=== PATIENT | female | born 1955 | race Caucasian/White ===

== ENCOUNTER 2018-05-01 20:40 | Inpatient (IN) | payer MEDICAID, BC ==
[2018-05-01 21:11] LABS: ADD MAN DIFF? NO
[2018-05-01] MEDS: ONDANSETRON 4 MG INJ IV (21:12)
[2018-05-01 21:13] LABS: WHITE BLOOD COUNT 10.9 10^3/ul (4.8-10.8)
[2018-05-01 21:13] LABS: BASOPHILS % 0.3 % (0.0-2.0); HEMATOCRIT 43.6 % (37.0-47.0); LYMPHOCYTES # 1.6 10^3/ul (0.8-2.9); LYMPHOCYTES % 14.8 % (15.0-51.0); MEAN CORPUSCULAR HEMOGLOBIN 26.8 pg (29.0-33.0); MEAN CORPUSCULAR HGB CONC 32.1 g/dl (32.0-37.0); MEAN CORPUSCULAR VOLUME 83.4 fl (82.0-101.0); MEAN PLATELET VOLUME 9.3 fl (7.4-10.4); MONOCYTE # 0.4 10^3/ul (0.3-0.9); MONOCYTES % 3.5 % (0.0-11.0); NEUTROPHIL # 8.8 10^3/ul (1.6-7.5); NEUTROPHILS % 81.2 % (39.0-77.0); PLATELET COUNT 411 10^3/UL (140-415); RED BLOOD COUNT 5.23 10^6/ul (4.20-5.40); RED CELL DISTRIBUTION WIDTH 14.7 % (11.5-14.5)
[2018-05-01] MEDS: SOD CHLORIDE 0.9% 1,000 ML IV (21:18)
[2018-05-01] MEDS: HYDROmorphONE 1 MG/ML SYG IV (21:18)
[2018-05-01 21:34] LABS: ALANINE AMINOTRANSFERASE 23 IU/L (13-69); ALBUMIN 4.7 g/dl (3.3-4.9); ALBUMIN/GLOBULIN RATIO 1.46; ALKALINE PHOSPHATASE 91 IU/L (42-121); ANION GAP 15 (5-13); ASPARTATE AMINO TRANSFERASE 38 IU/L (15-46); BILIRUBIN,INDIRECT 0.2 mg/dl (0-1.1); BILIRUBIN,TOTAL 0.2 mg/dl (0.2-1.3); BLOOD UREA NITROGEN 19 mg/dl (7-20); CALCIUM 10.6 mg/dl (8.4-10.2); CARBON DIOXIDE 27 mmol/L (21-31); CHLORIDE 104 mmol/L (97-110); CREATININE 0.94 mg/dl (0.44-1.00); Estimated GFR > 60 mL/min (>60); GLUCOSE 168 mg/dl (70-220); LIPASE 131 U/L (23-300); POTASSIUM 3.7 mmol/L (3.5-5.1); SODIUM 146 mmol/L (135-144); TOTAL PROTEIN 7.9 g/dl (6.1-8.1)
[2018-05-01] MEDS: IOHEXOL 300MG/ML 150 ML BTL (22:06)
[2018-05-01] MEDS: SOD CHLORIDE 0.9% 100 ML (22:06)
[2018-05-01] MEDS ORDERED: SOD CHLORIDE 0.9% 1,000 ML IV (22:45)
[2018-05-01] MEDS ORDERED: ACETAMINOPHEN 325 MG TAB PO (23:00)
[2018-05-01] MEDS: LIDOCAINE 2% VISC 15 ML CUP PO (23:41)
[2018-05-01] MEDS ORDERED: morphine 4 MG/ML VIAL IV (23:51)
[2018-05-02] MEDS ORDERED: NACL 0.9% 3 ML SYG IV
[2018-05-02] MEDS ORDERED: morphine 2 MG INJ IV
[2018-05-02] MEDS ORDERED: ALBUTEROL/IPRATROPIUM (NEB) 3 ML AMP HHN
[2018-05-02] MEDS: ONDANSETRON 4 MG INJ IV ×2 (00:18→12:00)
[2018-05-02] MEDS: morphine 4 MG/ML VIAL IV (00:19)
[2018-05-02] MEDS: morphine SULFATE/PF (2 MG/2 ML) SYG IV (01:46)
[2018-05-02] MEDS: DEXTROSE 5%-0.45% NACL 1,000 ML IV ×3 (01:50→21:17)
[2018-05-02 06:15] LABS: ADD MAN DIFF? NO
[2018-05-02 06:22] LABS: BASOPHILS % 0.2 % (0.0-2.0); HEMATOCRIT 38.1 % (37.0-47.0); HEMOGLOBIN 12.4 g/dl (12.0-16.0); LYMPHOCYTES # 0.6 10^3/ul (0.8-2.9); LYMPHOCYTES % 12.1 % (15.0-51.0); MEAN CORPUSCULAR HGB CONC 32.5 g/dl (32.0-37.0); MEAN PLATELET VOLUME 9.5 fl (7.4-10.4); MONOCYTE # 0.4 10^3/ul (0.3-0.9); MONOCYTES % 7.5 % (0.0-11.0); NEUTROPHIL # 4.2 10^3/ul (1.6-7.5); PLATELET COUNT 344 10^3/UL (140-415); RED BLOOD COUNT 4.59 10^6/ul (4.20-5.40); RED CELL DISTRIBUTION WIDTH 15.1 % (11.5-14.5)
[2018-05-02 06:22] LABS: WHITE BLOOD COUNT 5.2 10^3/ul (4.8-10.8)
[2018-05-02 06:44] LABS: ALANINE AMINOTRANSFERASE 21 IU/L (13-69); ALBUMIN/GLOBULIN RATIO 1.42; ALKALINE PHOSPHATASE 61 IU/L (42-121); ANION GAP 11 (5-13); ASPARTATE AMINO TRANSFERASE 32 IU/L (15-46); BILIRUBIN,INDIRECT 0.2 mg/dl (0-1.1); BILIRUBIN,TOTAL 0.2 mg/dl (0.2-1.3); BLOOD UREA NITROGEN 21 mg/dl (7-20); CALCIUM 9.3 mg/dl (8.4-10.2); CARBON DIOXIDE 27 mmol/L (21-31); CHLORIDE 107 mmol/L (97-110); CREATININE 0.89 mg/dl (0.44-1.00); Estimated GFR > 60 mL/min (>60); GLUCOSE 180 mg/dl (70-220); PHOSPHORUS 4.1 mg/dl (2.5-4.9); POTASSIUM 3.9 mmol/L (3.5-5.1); SODIUM 145 mmol/L (135-144); TOTAL PROTEIN 6.8 g/dl (6.1-8.1)
[2018-05-02] MEDS: FAMOTIDINE 20 MG INJ IV ×3 (08:48→21:13)
[2018-05-02] MEDS: DIATR MEGLU/DIATRIZOATE SODIUM 120 ML BTL ×2 (11:22→11:31)
[2018-05-02] MEDS: ACETAMINOPHEN 325 MG TAB PO (17:03)
[2018-05-02] MEDS: ZOLPIDEM 5 MG TAB PO (22:17)
[2018-05-03] MEDS: DEXTROSE 5%-0.45% NACL 1,000 ML IV (05:25)
[2018-05-03 07:40] LABS: ADD MAN DIFF? NO
[2018-05-03 07:45] LABS: BASOPHILS % 0.4 % (0.0-2.0); EOSINOPHILS # 0.2 10^3/ul (0.0-0.5); EOSINOPHILS % 4.6 % (0.0-7.0); HEMATOCRIT 36.8 % (37.0-47.0); HEMOGLOBIN 11.6 g/dl (12.0-16.0); LYMPHOCYTES # 1.8 10^3/ul (0.8-2.9); LYMPHOCYTES % 35.4 % (15.0-51.0); MEAN CORPUSCULAR HGB CONC 31.5 g/dl (32.0-37.0); MEAN CORPUSCULAR VOLUME 85.6 fl (82.0-101.0); MEAN PLATELET VOLUME 10.1 fl (7.4-10.4); MONOCYTE # 0.4 10^3/ul (0.3-0.9); MONOCYTES % 8.7 % (0.0-11.0); NEUTROPHIL # 2.5 10^3/ul (1.6-7.5); NEUTROPHILS % 50.7 % (39.0-77.0); PLATELET COUNT 301 10^3/UL (140-415)
[2018-05-03 08:10] LABS: ANION GAP 9 (5-13); BLOOD UREA NITROGEN 16 mg/dl (7-20); CALCIUM 8.9 mg/dl (8.4-10.2); CARBON DIOXIDE 27 mmol/L (21-31); CHLORIDE 108 mmol/L (97-110); CREATININE 0.89 mg/dl (0.44-1.00); Estimated GFR > 60 mL/min (>60); GLUCOSE 99 mg/dl (70-220); POTASSIUM 3.4 mmol/L (3.5-5.1); SODIUM 144 mmol/L (135-144)
[2018-05-03] MEDS: FAMOTIDINE 20 MG INJ IV (09:00)
[2018-05-03] MEDS: POTASSIUM CHLORIDE (SR) 20 MEQ TAB PO (12:22)
== END 2018-05-03 14:00 | disposition home or self-care (01) | DRG 389 ==
LOC: PP2 22:48 → E/R 20:40
DX: K56.609 Unspecified intestinal obstruction, unspecified as to partial versus complete obstruction (principal); E87.0 Hyperosmolality and hypernatremia; E86.0 Dehydration; Z85.43 Personal history of malignant neoplasm of ovary
CPT/HCPCS: 36415; 71045; 74177; 74250; 80048; 80053; 83690; 83735; 84100; 85025; 96361; 96374; 96375; 99285-25

== ENCOUNTER 2018-07-26 16:15 | Inpatient (IN) | payer MEDICAID ==
[2018-07-26] MEDS: SOD CHLORIDE 0.9% 1,000 ML IV (19:51)
[2018-07-26] MEDS: ONDANSETRON 4 MG INJ IV (20:23)
[2018-07-26] MEDS: morphine 4 MG/ML VIAL IV (20:24)
[2018-07-26 20:56] LABS: HEMATOCRIT 42.6 % (37.0-47.0); HEMOGLOBIN 13.4 g/dl (12.0-16.0); MEAN CORPUSCULAR HEMOGLOBIN 27.1 pg (29.0-33.0); MEAN CORPUSCULAR HGB CONC 31.5 g/dl (32.0-37.0); MEAN CORPUSCULAR VOLUME 86.1 fl (82.0-101.0); MEAN PLATELET VOLUME 10.6 fl (7.4-10.4); PLATELET COUNT 306 10^3/UL (140-415); RED BLOOD COUNT 4.95 10^6/ul (4.20-5.40); RED CELL DISTRIBUTION WIDTH 15.1 % (11.5-14.5)
[2018-07-26 20:56] LABS: WHITE BLOOD COUNT 3.4 10^3/ul (4.8-10.8)
[2018-07-26 21:03] LABS: POSITIVE DIFF @See below
[2018-07-26 21:04] LABS: ADD MAN DIFF? YES
[2018-07-26 21:14] LABS: ALANINE AMINOTRANSFERASE 13 IU/L (13-69); ALBUMIN 4.5 g/dl (3.3-4.9); ALBUMIN/GLOBULIN RATIO 1.21; ALKALINE PHOSPHATASE 75 IU/L (42-121); ANION GAP 14 (5-13); ASPARTATE AMINO TRANSFERASE 35 IU/L (15-46); BILIRUBIN,INDIRECT 0.5 mg/dl (0-1.1); BILIRUBIN,TOTAL 0.5 mg/dl (0.2-1.3); BLOOD UREA NITROGEN 21 mg/dl (7-20); CALCIUM 9.7 mg/dl (8.4-10.2); CARBON DIOXIDE 26 mmol/L (21-31); CHLORIDE 104 mmol/L (97-110); CREATININE 0.95 mg/dl (0.44-1.00); Estimated GFR 60 mL/min (>60); GLUCOSE 116 mg/dl (70-220); LIPASE 74 U/L (23-300); SODIUM 144 mmol/L (135-144); TOTAL PROTEIN 8.2 g/dl (6.1-8.1)
[2018-07-26 21:18] LABS: PROTIME 13.3 Sec (11.9-14.9)
[2018-07-26 21:19] LABS: PARTIAL THROMBOPLASTIN TIME 28.4 Sec (23.0-35.0)
[2018-07-26 21:26] LABS: TROPONIN-I < 0.012 ng/ml (0.000-0.120)
[2018-07-26 22:19] LABS: ADD UMIC NO; UR ASCORBIC ACID 40 mg/dL (NEGATIVE); UR BACTERIA FEW /HPF (NONE SEEN); UR BILIRUBIN (Dip) NEGATIVE (NEGATIVE); UR BLOOD (Dip) NEGATIVE (NEGATIVE); UR CLARITY SLIGHTLY CLOUDY (CLEAR); UR COLOR YELLOW (YELLOW); UR GLUCOSE (Dip) NEGATIVE (NEGATIVE); UR KETONES (Dip) 2+ mg/dL (NEGATIVE); UR LEUKOCYTE ESTERASE (Dip) NEGATIVE Leu/ul (NEGATIVE); UR MUCUS MANY /HPF (NONE SEEN); UR NITRITE (Dip) NEGATIVE (NEGATIVE); UR RBC 4 /HPF (0-5); UR SPECIFIC GRAVITY (Dip) 1.027 (1.003-1.030); UR SQUAMOUS EPITHELIAL CELL FEW /HPF (FEW); UR TOTAL PROTEIN (Dip) NEGATIVE (NEGATIVE); UR UROBILINOGEN (Dip) NEGATIVE (NEGATIVE); UR WBC 6 /HPF (0-5)
[2018-07-26] MEDS ORDERED: ONDANSETRON 4 MG INJ IV (22:30)
[2018-07-26 22:51] LABS: BAND NEUTROPHILS #M 0.7 10^3/ul (0.0-0.6); BAND NEUTROPHILS % (M) 21 % (0-4); LYMPHOCYTES #M 0.7 10^3/ul (0.8-2.9); LYMPHOCYTES % (M) 22 % (15-51); MONOCYTE #M 0.2 10^3/ul (0.3-0.9); MONOCYTES % (M) 7 % (0-11); POIKILOCYTOSIS 2+ (0-0); SEG NEUT #M 1.7 10^3/ul (1.6-7.5); SEGMENTED NEUTROPHILS (M) % 50 % (39-77); SMUDGE%M 6 % (0-0)
[2018-07-26] MEDS: ACETAMINOPHEN 325 MG TAB PO (23:38)
[2018-07-27] MEDS ORDERED: morphine 2 MG INJ IV (03:30)
[2018-07-27] MEDS ORDERED: ONDANSETRON 4 MG INJ IV (03:30)
[2018-07-27] MEDS ORDERED: NACL 0.9% 3 ML SYG IV (03:30)
[2018-07-27] MEDS: DEXTROSE 5%-0.45% NACL 1,000 ML IV ×2 (03:34→15:11)
[2018-07-27 05:58] LABS: ADD MAN DIFF? NO
[2018-07-27 06:28] LABS: WHITE BLOOD COUNT 3.4 10^3/ul (4.8-10.8)
[2018-07-27 06:28] LABS: BASOPHILS % 0.3 % (0.0-2.0); EOSINOPHILS % 0.9 % (0.0-7.0); HEMATOCRIT 32.5 % (37.0-47.0); HEMOGLOBIN 10.4 g/dl (12.0-16.0); LYMPHOCYTES # 1.6 10^3/ul (0.8-2.9); MEAN CORPUSCULAR HEMOGLOBIN 27.7 pg (29.0-33.0); MEAN CORPUSCULAR VOLUME 86.7 fl (82.0-101.0); MEAN PLATELET VOLUME 10.5 fl (7.4-10.4); MONOCYTE # 0.5 10^3/ul (0.3-0.9); MONOCYTES % 13.6 % (0.0-11.0); NEUTROPHIL # 1.3 10^3/ul (1.6-7.5); NEUTROPHILS % 38.9 % (39.0-77.0); PLATELET COUNT 255 10^3/UL (140-415); RED BLOOD COUNT 3.75 10^6/ul (4.20-5.40); RED CELL DISTRIBUTION WIDTH 15.1 % (11.5-14.5)
[2018-07-27 06:42] LABS: ALANINE AMINOTRANSFERASE 18 IU/L (13-69); ALBUMIN 3.3 g/dl (3.3-4.9); ALBUMIN/GLOBULIN RATIO 1.17; ALKALINE PHOSPHATASE 51 IU/L (42-121); ANION GAP 10 (5-13); ASPARTATE AMINO TRANSFERASE 24 IU/L (15-46); BILIRUBIN,INDIRECT 0.4 mg/dl (0-1.1); BILIRUBIN,TOTAL 0.4 mg/dl (0.2-1.3); BLOOD UREA NITROGEN 21 mg/dl (7-20); CALCIUM 8.5 mg/dl (8.4-10.2); CARBON DIOXIDE 27 mmol/L (21-31); CHLORIDE 107 mmol/L (97-110); CREATININE 0.84 mg/dl (0.44-1.00); Estimated GFR > 60 mL/min (>60); GLUCOSE 103 mg/dl (70-220); POTASSIUM 3.9 mmol/L (3.5-5.1); SODIUM 144 mmol/L (135-144); TOTAL PROTEIN 6.1 g/dl (6.1-8.1)
[2018-07-27] MEDS: CEFTRIAXONE 1 GM/50 ML (PMX) 50 ML IVPB (08:16)
[2018-07-27] MEDS: FAMOTIDINE 20 MG INJ IV ×2 (08:16→20:58)
[2018-07-27] MEDS ORDERED: DIATR MEGLU/DIATRIZOATE SODIUM 120 ML BTL (10:05)
[2018-07-27] MEDS: D5W-0.45 NACL + KCL 20 MEQ 1,000 ML IV (16:44)
[2018-07-27] MEDS: ZOLPIDEM 5 MG TAB PO (20:58)
[2018-07-28] MEDS: D5W-0.45 NACL + KCL 20 MEQ 1,000 ML IV (02:07)
[2018-07-28] MEDS: ACETAMINOPHEN 325 MG TAB PO ×2 (02:32→13:05)
[2018-07-28 06:02] LABS: ADD MAN DIFF? NO
[2018-07-28 06:06] LABS: BASOPHILS % 0.3 % (0.0-2.0); EOSINOPHILS # 0.1 10^3/ul (0.0-0.5); EOSINOPHILS % 2.2 % (0.0-7.0); HEMATOCRIT 32.8 % (37.0-47.0); HEMOGLOBIN 10.4 g/dl (12.0-16.0); LYMPHOCYTES # 0.9 10^3/ul (0.8-2.9); LYMPHOCYTES % 25.8 % (15.0-51.0); MEAN CORPUSCULAR HEMOGLOBIN 27.4 pg (29.0-33.0); MEAN CORPUSCULAR HGB CONC 31.7 g/dl (32.0-37.0); MEAN CORPUSCULAR VOLUME 86.3 fl (82.0-101.0); MONOCYTE # 0.3 10^3/ul (0.3-0.9); MONOCYTES % 8.9 % (0.0-11.0); NEUTROPHIL # 2.3 10^3/ul (1.6-7.5); NEUTROPHILS % 62.5 % (39.0-77.0); PLATELET COUNT 228 10^3/UL (140-415); RED CELL DISTRIBUTION WIDTH 14.8 % (11.5-14.5)
[2018-07-28 06:06] LABS: WHITE BLOOD COUNT 3.6 10^3/ul (4.8-10.8)
[2018-07-28 06:39] LABS: ANION GAP 6 (5-13); BLOOD UREA NITROGEN 14 mg/dl (7-20); CALCIUM 8.6 mg/dl (8.4-10.2); CARBON DIOXIDE 26 mmol/L (21-31); CHLORIDE 110 mmol/L (97-110); CREATININE 0.88 mg/dl (0.44-1.00); Estimated GFR > 60 mL/min (>60); GLUCOSE 99 mg/dl (70-220); MAGNESIUM 1.8 mg/dl (1.7-2.5); PHOSPHORUS 2.6 mg/dl (2.5-4.9); POTASSIUM 3.6 mmol/L (3.5-5.1); SODIUM 142 mmol/L (135-144)
[2018-07-28] MEDS: FAMOTIDINE 20 MG INJ IV ×2 (08:29→20:41)
[2018-07-28] MEDS: CEFTRIAXONE 1 GM/50 ML (PMX) 50 ML IVPB (08:30)
[2018-07-28] MEDS: ZOLPIDEM 5 MG TAB PO (22:59)
[2018-07-29] MEDS: ACETAMINOPHEN 325 MG TAB PO (03:14)
[2018-07-29 07:08] LABS: ADD MAN DIFF? NO
[2018-07-29 07:16] LABS: ABNORMAL IP MESSAGE 1; BASOPHILS % 0.4 % (0.0-2.0); EOSINOPHILS # 0.1 10^3/ul (0.0-0.5); EOSINOPHILS % 1.8 % (0.0-7.0); HEMATOCRIT 35.2 % (37.0-47.0); HEMOGLOBIN 11.2 g/dl (12.0-16.0); LYMPHOCYTES # 1.3 10^3/ul (0.8-2.9); LYMPHOCYTES % 47.8 % (15.0-51.0); MEAN CORPUSCULAR HEMOGLOBIN 27.1 pg (29.0-33.0); MEAN CORPUSCULAR HGB CONC 31.8 g/dl (32.0-37.0); MEAN CORPUSCULAR VOLUME 85.2 fl (82.0-101.0); MEAN PLATELET VOLUME 10.3 fl (7.4-10.4); MONOCYTE # 0.4 10^3/ul (0.3-0.9); MONOCYTES % 15.8 % (0.0-11.0); NEUTROPHIL # 0.9 10^3/ul (1.6-7.5); NEUTROPHILS % 33.8 % (39.0-77.0); PLATELET COUNT 248 10^3/UL (140-415); RED BLOOD COUNT 4.13 10^6/ul (4.20-5.40); RED CELL DISTRIBUTION WIDTH 14.9 % (11.5-14.5)
[2018-07-29 07:16] LABS: WHITE BLOOD COUNT 2.7 10^3/ul (4.8-10.8)
[2018-07-29 07:19] LABS: POSITIVE DIFF @See below
[2018-07-29] MEDS: FAMOTIDINE 20 MG INJ IV (08:08)
[2018-07-29] MEDS: CEFTRIAXONE 1 GM/50 ML (PMX) 50 ML IVPB (08:08)
== END 2018-07-29 10:55 | disposition home or self-care (01) | DRG 389 ==
LOC: MS3 22:16 → E/R 16:15 → MS3 22:16 → 5EC 07-27 12:20
DX: K56.609 Unspecified intestinal obstruction, unspecified as to partial versus complete obstruction (principal); N39.0 Urinary tract infection, site not specified; K59.09 Other constipation; B34.9 Viral infection, unspecified; K52.9 Noninfective gastroenteritis and colitis, unspecified; D70.1 Agranulocytosis secondary to cancer chemotherapy; D64.81 Anemia due to antineoplastic chemotherapy; Z90.710 Acquired absence of both cervix and uterus; Z85.43 Personal history of malignant neoplasm of ovary; Z92.21 Personal history of antineoplastic chemotherapy; Z92.3 Personal history of irradiation; T45.1X5A Adverse effect of antineoplastic and immunosuppressive drugs, initial encounter
CPT/HCPCS: 36415; 71045; 74176; 74250; 76705; 80048; 80053; 81001; 81003; 83690; 83735; 84100; 84484; 85025; 85610; 85730; 87045; 87075; 87086; 93005; 96374; 96375; 99285-25

== ENCOUNTER 2018-11-07 15:02 | Inpatient (IN) | payer MEDICAID ==
[2018-11-07 15:44] LABS: ADD MAN DIFF? NO
[2018-11-07] MEDS: SOD CHLORIDE 0.9% 1,000 ML IV ×2 (15:45→22:20)
[2018-11-07 15:46] LABS: WHITE BLOOD COUNT 9.6 10^3/ul (4.8-10.8)
[2018-11-07 15:46] LABS: BASOPHILS % 0.2 % (0.0-2.0); HEMATOCRIT 39.6 % (37.0-47.0); HEMOGLOBIN 12.9 g/dl (12.0-16.0); LYMPHOCYTES % 10.5 % (15.0-51.0); MEAN CORPUSCULAR HEMOGLOBIN 27.3 pg (29.0-33.0); MEAN CORPUSCULAR HGB CONC 32.6 g/dl (32.0-37.0); MEAN CORPUSCULAR VOLUME 83.7 fl (82.0-101.0); MEAN PLATELET VOLUME 9.7 fl (7.4-10.4); MONOCYTE # 0.2 10^3/ul (0.3-0.9); MONOCYTES % 2.4 % (0.0-11.0); NEUTROPHIL # 8.3 10^3/ul (1.6-7.5); NEUTROPHILS % 86.6 % (39.0-77.0); PLATELET COUNT 332 10^3/UL (140-415); RED BLOOD COUNT 4.73 10^6/ul (4.20-5.40); RED CELL DISTRIBUTION WIDTH 14.2 % (11.5-14.5)
[2018-11-07] MEDS: ONDANSETRON 4 MG INJ IV ×2 (15:46→18:00)
[2018-11-07] MEDS: FAMOTIDINE 20 MG INJ IV (15:47)
[2018-11-07] MEDS: LIDOCAINE/MYLANTA 40 ML BTL PO (15:49)
[2018-11-07] MEDS: BELLADONNA/PHENOBARBITAL TAB PO (15:49)
[2018-11-07 16:07] LABS: ALANINE AMINOTRANSFERASE 23 IU/L (13-69); ALBUMIN 4.8 g/dl (3.3-4.9); ALKALINE PHOSPHATASE 98 IU/L (42-121); ANION GAP 11 (5-13); ASPARTATE AMINO TRANSFERASE 38 IU/L (15-46); BILIRUBIN,INDIRECT 0.5 mg/dl (0-1.1); BILIRUBIN,TOTAL 0.5 mg/dl (0.2-1.3); BLOOD UREA NITROGEN 17 mg/dl (7-20); CALCIUM 10.4 mg/dl (8.4-10.2); CARBON DIOXIDE 26 mmol/L (21-31); CHLORIDE 105 mmol/L (97-110); CREATININE 1.12 mg/dl (0.44-1.00); Estimated GFR 49 mL/min (>60); GLUCOSE 168 mg/dl (70-220); LIPASE 118 U/L (23-300); POTASSIUM 4.1 mmol/L (3.5-5.1); SODIUM 142 mmol/L (135-144); TOTAL PROTEIN 8.8 g/dl (6.1-8.1)
[2018-11-07] MEDS: morphine 4 MG/ML VIAL IV ×2 (16:09→18:01)
[2018-11-07 18:28] LABS: ADD UMIC YES; UR ASCORBIC ACID NEGATIVE (NEGATIVE); UR BILIRUBIN (Dip) NEGATIVE (NEGATIVE); UR BLOOD (Dip) NEGATIVE (NEGATIVE); UR CLARITY CLEAR (CLEAR); UR COLOR YELLOW (YELLOW); UR GLUCOSE (Dip) NEGATIVE (NEGATIVE); UR KETONES (Dip) 1+ mg/dL (NEGATIVE); UR LEUKOCYTE ESTERASE (Dip) NEGATIVE Leu/ul (NEGATIVE); UR MUCUS FEW /HPF (NONE SEEN); UR NITRITE (Dip) NEGATIVE (NEGATIVE); UR RBC 4 /HPF (0-5); UR TOTAL PROTEIN (Dip) 2+ mg/dl (NEGATIVE); UR UROBILINOGEN (Dip) NEGATIVE (NEGATIVE); UR WBC 4 /HPF (0-5)
[2018-11-07] MEDS ORDERED: ONDANSETRON 4 MG INJ IV ×2 (20:00→20:30)
[2018-11-07] MEDS ORDERED: ACETAMINOPHEN 325 MG TAB PO ×2 (20:00→20:30)
[2018-11-07] MEDS ORDERED: morphine 2 MG INJ IV (20:30)
[2018-11-07] MEDS: LIDOCAINE 2% VISC 15 ML CUP PO ×2 (20:30→22:49)
[2018-11-07] MEDS ORDERED: NACL 0.9% 3 ML SYG IV (20:30)
[2018-11-07] MEDS ORDERED: RANITIDINE 150 MG TAB PO (21:00)
[2018-11-07] MEDS: GABAPENTIN 300 MG CAP PO (22:19)
[2018-11-08] MEDS: PANTOPRAZOLE (EC) 40 MG TAB PO ×2 (05:18→17:30)
[2018-11-08 07:28] LABS: ADD MAN DIFF? NO
[2018-11-08 07:37] LABS: BASOPHILS % 0.4 % (0.0-2.0); EOSINOPHILS # 0.1 10^3/ul (0.0-0.5); EOSINOPHILS % 1.5 % (0.0-7.0); HEMATOCRIT 33.5 % (37.0-47.0); HEMOGLOBIN 10.6 g/dl (12.0-16.0); LYMPHOCYTES # 1.4 10^3/ul (0.8-2.9); LYMPHOCYTES % 27.3 % (15.0-51.0); MEAN CORPUSCULAR HEMOGLOBIN 26.9 pg (29.0-33.0); MEAN CORPUSCULAR HGB CONC 31.6 g/dl (32.0-37.0); MEAN PLATELET VOLUME 10.2 fl (7.4-10.4); MONOCYTE # 0.4 10^3/ul (0.3-0.9); MONOCYTES % 8.4 % (0.0-11.0); NEUTROPHIL # 3.2 10^3/ul (1.6-7.5); PLATELET COUNT 256 10^3/UL (140-415); RED BLOOD COUNT 3.94 10^6/ul (4.20-5.40); RED CELL DISTRIBUTION WIDTH 14.4 % (11.5-14.5)
[2018-11-08 07:37] LABS: WHITE BLOOD COUNT 5.2 10^3/ul (4.8-10.8)
[2018-11-08 07:58] LABS: HEMOGLOBIN A1C 5.1 % (0-5.9)
[2018-11-08 08:02] LABS: ALANINE AMINOTRANSFERASE 18 IU/L (13-69); ALBUMIN 3.3 g/dl (3.3-4.9); ALKALINE PHOSPHATASE 59 IU/L (42-121); ANION GAP 6 (5-13); ASPARTATE AMINO TRANSFERASE 33 IU/L (15-46); BILIRUBIN,INDIRECT 0.7 mg/dl (0-1.1); BILIRUBIN,TOTAL 0.7 mg/dl (0.2-1.3); BLOOD UREA NITROGEN 18 mg/dl (7-20); CALCIUM 8.5 mg/dl (8.4-10.2); CARBON DIOXIDE 26 mmol/L (21-31); CHLORIDE 112 mmol/L (97-110); CREATININE 1.11 mg/dl (0.44-1.00); Estimated GFR 50 mL/min (>60); GLUCOSE 83 mg/dl (70-220); MAGNESIUM 2.1 mg/dl (1.7-2.5); POTASSIUM 4.4 mmol/L (3.5-5.1); SODIUM 144 mmol/L (135-144); TOTAL PROTEIN 6.3 g/dl (6.1-8.1)
[2018-11-08] MEDS: SOD CHLORIDE 0.9% 1,000 ML IV ×3 (09:26→22:42)
[2018-11-08] MEDS: LORATADINE 10 MG TAB PO (09:26)
[2018-11-08] MEDS: CITALOPRAM 20 MG TAB PO (09:26)
[2018-11-08] MEDS: GABAPENTIN 300 MG CAP PO ×2 (09:26→21:00)
[2018-11-08] MEDS: IOHEXOL 300MG/ML 150 ML BTL (09:45)
[2018-11-08 10:08] LABS: ADD UMIC NO; UR ASCORBIC ACID NEGATIVE (NEGATIVE); UR BILIRUBIN (Dip) NEGATIVE (NEGATIVE); UR BLOOD (Dip) NEGATIVE (NEGATIVE); UR CLARITY CLEAR (CLEAR); UR COLOR YELLOW (YELLOW); UR GLUCOSE (Dip) NEGATIVE (NEGATIVE); UR KETONES (Dip) NEGATIVE (NEGATIVE); UR LEUKOCYTE ESTERASE (Dip) NEGATIVE Leu/ul (NEGATIVE); UR NITRITE (Dip) NEGATIVE (NEGATIVE); UR SPECIFIC GRAVITY (Dip) 1.012 (1.003-1.030); UR TOTAL PROTEIN (Dip) NEGATIVE (NEGATIVE); UR UROBILINOGEN (Dip) NEGATIVE (NEGATIVE)
[2018-11-08 10:23] LABS: CREATININE,URINE RANDOM 86.48 mg/dl (20-320); PROTEIN/CREAT RATIO 0.11 RATIO
[2018-11-09] MEDS: PANTOPRAZOLE (EC) 40 MG TAB PO (05:32)
[2018-11-09 07:16] LABS: ANION GAP 5 (5-13); BLOOD UREA NITROGEN 13 mg/dl (7-20); CALCIUM 8.5 mg/dl (8.4-10.2); CARBON DIOXIDE 26 mmol/L (21-31); CHLORIDE 112 mmol/L (97-110); CREATININE 1.08 mg/dl (0.44-1.00); Estimated GFR 51 mL/min (>60); GLUCOSE 82 mg/dl (70-220); POTASSIUM 3.7 mmol/L (3.5-5.1); SODIUM 143 mmol/L (135-144)
[2018-11-09] MEDS: CITALOPRAM 20 MG TAB PO (10:36)
[2018-11-09] MEDS: LORATADINE 10 MG TAB PO (10:36)
[2018-11-09] MEDS: GABAPENTIN 300 MG CAP PO (10:36)
== END 2018-11-09 14:46 | disposition home or self-care (01) | DRG 389 ==
LOC: E/R 15:02 → PP2 19:42
DX: K56.609 Unspecified intestinal obstruction, unspecified as to partial versus complete obstruction (principal); N17.9 Acute kidney failure, unspecified; F41.9 Anxiety disorder, unspecified; D50.9 Iron deficiency anemia, unspecified; K21.9 Gastro-esophageal reflux disease without esophagitis; Z85.42 Personal history of malignant neoplasm of other parts of uterus; Z92.21 Personal history of antineoplastic chemotherapy; Z90.710 Acquired absence of both cervix and uterus; Z85.43 Personal history of malignant neoplasm of ovary
CPT/HCPCS: 36415; 74176; 74250; 76775; 80048; 80053; 81001; 81003; 82570; 83036; 83690; 83735; 85025; 96361; 96374; 96375; 96376; 99285-25